=== PATIENT | female | born 1990 | race Caucasian/White ===

== ENCOUNTER 2016-07-24 05:42 | Emergency (ER) | payer MEDICAID, OTHER ==
[~2016-07-24] VITALS: Ht 165.1 cm; Wt 61.2 kg
[~2016-07-24 05:42] MED LIST: ACET50TA PO; IBUP-1114 PO
[2016-07-24 06:23] LABS: MEAN CORPUSCULAR HEMOGLOBIN 27.9 pg (27.0-33.0); MEAN CORPUSCULAR HGB CONC 33.3 g/dl (32.0-36.5); MEAN CORPUSCULAR VOLUME 83.5 fl (80.0-96.0); WHITE BLOOD COUNT 8.1 K/mm3 (4.0-10.0)
[2016-07-24 06:37] LABS: CONTROL LINE HCG INT CTR LINE PRESENT
[2016-07-24 06:54] LABS: ALBUMIN 3.9 GM/DL (3.2-5.2); ALKALINE PHOSPHATASE 64 U/L (45-117); ALT/SGPT 21 U/L (12-78); ANION GAP 7 MEQ/L (8-16); AST/SGOT 10 U/L (15-37); BILIRUBIN,DIRECT 0.1 MG/DL (0.0-0.2); BILIRUBIN,TOTAL 0.3 MG/DL (0.2-1.0); BLOOD UREA NITROGEN 11 MG/DL (7-18); CALCIUM LEVEL 8.2 MG/DL (8.5-10.1); CARBON DIOXIDE LEVEL 26 MEQ/L (21-32); CHLORIDE LEVEL 109 MEQ/L (98-107); CREATININE FOR GFR 0.73 MG/DL (0.55-1.02); GLOMERULAR FILTRATION RATE > 60.0 (>60); GLUCOSE, FASTING 112 MG/DL (70-105); POTASSIUM SERUM 4.1 MEQ/L (3.5-5.1); SODIUM LEVEL 142 MEQ/L (136-145); TOTAL PROTEIN 6.9 GM/DL (6.4-8.2)
[2016-07-24 09:49] LABS: METHADONE URINE NEGATIVE (NEGATIVE)
[2016-07-24 16:06] VITALS: BP 105/61
== END 2016-07-24 16:09 | disposition home or self-care (01) ==
LOC: M ED 06:23
DX: F32.9 Major depressive disorder, single episode, unspecified (principal); F17.210 Nicotine dependence, cigarettes, uncomplicated; Z88.0 Allergy status to penicillin; Z88.1 Allergy status to other antibiotic agents
CPT/HCPCS: 36415; 80048; 80076; 80306; 84443; 84703; 85027; 99285; G0480

== ENCOUNTER 2017-01-06 17:09 | Emergency (ER) | payer OTHER ==
[~2017-01-06] VITALS: Ht 165.1 cm; Wt 65.0 kg
[2017-01-06 17:09] VITALS: BP 126/83
== END 2017-01-06 19:10 | disposition left against medical advice (07) ==
LOC: M ED 17:09
DX: K08.89 Other specified disorders of teeth and supporting structures (principal); Z53.29 Procedure and treatment not carried out because of patient's decision for other reasons

== ENCOUNTER 2018-06-02 20:10 | Emergency (ER) | payer OTHER ==
[~2018-06-02] VITALS: Ht 165.1 cm; Wt 67.3 kg
[2018-06-02 20:10] VITALS: BP 110/52
[~2018-06-02 20:10] MED LIST changes: -ACET50TA PO; +MAPA500T2 PO
[2018-06-02] MEDS ORDERED: MULTCAP PO (23:23)
[2018-06-03] MEDS ORDERED: BACT800T5 PO (02:15)
[2018-06-03] MEDS ORDERED: PYRI1TAB5 PO (02:15)
== END 2018-06-02 20:46 | disposition left against medical advice (07) ==
LOC: M ED 20:10
DX: R10.9 Unspecified abdominal pain (principal); Z53.21 Procedure and treatment not carried out due to patient leaving prior to being seen by health care provider

== ENCOUNTER 2018-06-02 23:11 | Emergency (ER) | payer OTHER ==
[~2018-06-02] VITALS: Ht 165.1 cm; Wt 67.3 kg
[2018-06-02] MEDS ORDERED: MULTCAP PO (23:23)
[2018-06-02] MEDS ORDERED: KETOROLAC 30 MG/ML VIAL (J1885) IV ONE (23:30)
[2018-06-02] MEDS ORDERED: NS 1,000 ML IV ONE (23:30)
[2018-06-03 00:42] LABS: HEMATOCRIT 40.5 % (36.0-47.0); HEMOGLOBIN 13.9 g/dl (12.0-15.5); MEAN CORPUSCULAR HEMOGLOBIN 28.6 pg (27.0-33.0); MEAN CORPUSCULAR HGB CONC 34.3 g/dl (32.0-36.5); MEAN CORPUSCULAR VOLUME 83.3 fl (80.0-96.0); PLATELET COUNT, AUTOMATED 253 10^3/uL (150-450); RED BLOOD COUNT 4.86 10^6/uL (4.00-5.40); WHITE BLOOD COUNT 13.5 10^3/uL (4.0-10.0)
[2018-06-03 00:53] LABS: ALT/SGPT 15 U/L (12-78); BILIRUBIN,DIRECT < 0.1 MG/DL (0.0-0.2); BILIRUBIN,TOTAL 0.2 MG/DL (0.2-1.0); BLOOD UREA NITROGEN 13 MG/DL (7-18); CALCIUM LEVEL 8.8 MG/DL (8.5-10.1); CARBON DIOXIDE LEVEL 26 MEQ/L (21-32); CHLORIDE LEVEL 105 MEQ/L (98-107); CREATININE FOR GFR 0.74 MG/DL (0.55-1.30); GLOMERULAR FILTRATION RATE > 60.0 (>60); GLUCOSE, FASTING 81 MG/DL (70-100); LIPASE 101 U/L (73-393); POTASSIUM SERUM 3.8 MEQ/L (3.5-5.1); SODIUM LEVEL 140 MEQ/L (136-145); TOTAL PROTEIN 7.1 GM/DL (6.4-8.2)
[2018-06-03] MEDS ORDERED: ISOVUE-370 76% 100ML VIAL (Q9967) As Ordered ONE (01:04)
[2018-06-03 01:15] LABS: ATYPICAL LYMPH 2 % (0-5); EOSINOPHILS 3 % (0-5); LYMPHOCYTES 25 % (16-52); MONOCYTES 4 % (0-8); NEUTROPHILS 66 % (35-75)
[2018-06-03 01:16] LABS: PLATELET ESTIMATE NORMAL (NORMAL)
--- NOTE | 2018-06-03 02:02 | REPVR ---
EXAM: CT Abdomen and Pelvis With Contrast EXAM DATE/TIME: 06/02/2018 11:30 PM CLINICAL HISTORY: 28 years old, female; Abdominal pain; Right lower quadrant (rlq) TECHNIQUE: Axial computed tomography images of the abdomen and pelvis with intravenous contrast. All CT scans at this facility use at least one of these dose optimization techniques: automated exposure control; mA and/or kV adjustment per patient size (includes targeted exams where dose is matched to clinical indication); or iterative reconstruction. Coronal and sagittal reformatted images were created and reviewed. CONTRAST: 100 ml of isovue administered intravenously. COMPARISON: US PELVIC NON-OB COMPLETE 03/12/2015 11:10 AM FINDINGS: Lower thorax: There is atelectasis or scarring in the right middle lobe. No cardiomegaly or pericardial effusion is noted. ABDOMEN: Liver: The liver is unremarkable. No liver lesion is seen. The contour of the liver is smooth. No hepatomegaly is noted. Gallbladder and bile ducts: The gallbladder is contracted. No calcifications are seen in the gallbladder to suggest calculi. No gallbladder wall thickening, pericholecystic fluid, or pericholecystic inflammatory changes is identified. No dilation of the intrahepatic or extrahepatic bile ducts is noted. Pancreas: Normal. The main pancreatic duct is normal in caliber. Spleen: Unremarkable. No splenomegaly is noted. Adrenals: Normal. No mass. Kidneys and ureters: The kidneys are normal in appearance. No renal lesion is identified. No calculi are seen in the kidneys or ureters. There is no hydronephrosis or hydroureter. Stomach and bowel: There is no evidence for a bowel obstruction, diverticulosis, diverticulitis, pneumatosis intestinalis, intussusception, volvulus, or perforated viscus. The hepatic flexure, descending colon, and sigmoid colon are decompressed, limiting their optimal evaluation. Appendix: Normal. There is no evidence for appendicitis. PELVIS: Bladder: The partially distended urinary bladder is unremarkable. No stones or masses are seen in the bladder. Reproductive: The uterus is retroverted. There is an intrauterine device in satisfactory position in the endometrial canal. The ovaries are unremarkable. Incidental note is made of a 1.3 cm follicular cyst in the left ovary. ABDOMEN and PELVIS: Intraperitoneal space: Normal. No free air. No fluid collection. Bones/joints: The imaged bony structures are intact. There is no suspicious osteolytic or osteoblastic lesion. Soft tissues: Unremarkable. Vasculature: The abdominal aorta is normal in caliber and patent. The renal arteries, celiac artery, superior mesenteric artery, and inferior mesenteric artery are patent. The iliac arteries and common femoral arteries are patent. Lymph nodes: Normal. No enlarged lymph nodes. IMPRESSION: No acute findings in the abdomen or pelvis. Normal appendix. Electronically signed by: Greyson Verduzco On 06/03/2018 02:02:18 AM
[2018-06-03] MEDS ORDERED: BACTRIM 160MG/800MG DS TAB PO ONE (02:15)
[2018-06-03] MEDS ORDERED: BACT800T5 PO (02:15)
[2018-06-03] MEDS ORDERED: PYRI1TAB5 PO (02:15)
[2018-06-03 02:42] VITALS: BP 97/53
== END 2018-06-03 02:59 | disposition home or self-care (01) ==
LOC: M ED 23:11
DX: N30.90 Cystitis, unspecified without hematuria (principal); F17.210 Nicotine dependence, cigarettes, uncomplicated; Z88.0 Allergy status to penicillin; Z88.1 Allergy status to other antibiotic agents
CPT/HCPCS: 74177; 80048; 80076; 81001; 81025; 83690; 85025; 87086; 96361; 96374; 99284; J1885; Q9967

== ENCOUNTER → 2018-06-12 | Outpatient (REF) | payer OTHER ==
[~2018-06-12] MED LIST changes: +BACT800T5 PO; +MULTCAP PO; +PYRI1TAB5 PO
[2018-06-12 12:39] LABS: APPEARANCE, URINE HAZY (CLEAR); BACTERIA, URINE AUTO NEGATIVE (NEGATIVE); BILIRUBIN, URINE AUTO NEGATIVE (NEGATIVE); BLOOD, URINE BLOOD NEGATIVE (NEGATIVE); COLOR, URINE YELLOW (YELLOW); GLUCOSE, URINE (UA) AUTO NEGATIVE (NEGATIVE); KETONE, URINE AUTO NEGATIVE (NEGATIVE); LEUKOCYTE ESTERASE, URINE AUTO NEGATIVE (NEGATIVE); MUCUS, URINE SMALL (NEGATIVE); NITRITE, URINE AUTO NEGATIVE (NEGATIVE); PROTEIN, URINE AUTO NEGATIVE (NEGATIVE); RBC, URINE AUTO 0 /HPF (0-3); SPECIFIC GRAVITY URINE AUTO 1.027 (1.002-1.035); SQUAMOUS EPITHELIAL CELL UR AU 3 /HPF (0-6); WBC, URINE AUTO 1 /HPF (0-3)
== END ==
LOC: M LAB REF 12:22
PROVIDERS: ATTEND Physician Assistant Medical
DX: N39.0 Urinary tract infection, site not specified (principal)

== ENCOUNTER 2019-09-08 19:40 | Inpatient (IN) | payer OTHER ==
[~2019-09-08] VITALS: Ht 165.1 cm; Wt 52.2 kg
[2019-09-08] MEDS ORDERED: DICYCLOMINE 10 MG CAP PO ONE (20:15)
[2019-09-08] MEDS ORDERED: ONDANSETRON 4MG/2ML VIAL IV ONE (20:15)
[2019-09-08] MEDS ORDERED: KETOROLAC 30 MG/ML 1ML VIAL IV ONE (20:15)
[2019-09-08] MEDS ORDERED: NS 1,000 ML IV ONE (20:15)
[2019-09-08 20:53] LABS: BASO # 0.1 10^3/uL (0.0-0.2); BASO % 0.8 % (0.0-1.0); EOS # 0.2 10^3/uL (0.0-0.5); EOS % 1.9 % (0.0-3.0); HEMATOCRIT 46.6 % (36.0-47.0); HEMOGLOBIN 15.3 g/dl (12.0-15.5); LYMPH # 3.1 10^3/uL (1.5-5.0); LYMPH % 30.6 % (24.0-44.0); MEAN CORPUSCULAR HEMOGLOBIN 28.3 pg (27.0-33.0); MEAN CORPUSCULAR HGB CONC 32.8 g/dl (32.0-36.5); MEAN CORPUSCULAR VOLUME 86.3 fl (80.0-96.0); MONO # 0.6 10^3/uL (0.0-0.8); MONO % 5.9 % (0.0-5.0); NEUTROPHILS # 6.1 10^3/uL (1.5-8.5); NEUTROPHILS % 60.3 % (36.0-66.0); PLATELET COUNT, AUTOMATED 358 10^3/uL (150-450); WHITE BLOOD COUNT 10.2 10^3/uL (4.0-10.0)
--- NOTE | 2019-09-08 21:16 | REPVR ---
PROCEDURE INFORMATION: Exam: US Abdomen Limited, Right Upper Quadrant Exam date and time: 09/08/2019 8:58 PM Age: 29 years old Clinical indication: Abdominal pain; Additional info: Epigastric pain TECHNIQUE: Imaging protocol: Real-time ultrasound of the abdomen with image documentation. Examination was focused on the right upper quadrant. COMPARISON: No relevant prior studies available. FINDINGS: Liver: Unremarkable. Gallbladder: Contracted, which limits evaluation for wall thickening. No gallstones. No pericholecystic fluid. Common bile duct: No stones. No ductal dilatation. Pancreas: Unremarkable as visualized. Right kidney: No mass. No definite stones. No hydronephrosis. Lymph nodes: 1.1 x 0.9 x 1.4 cm ovoid, hypoechoic lesion in the wood hepatis, likely a lymph node. IMPRESSION: 1. Contracted gallbladder, which limits evaluation. If there is persistent clinical concern for acute gallbladder pathology, HIDA scan would provide a more sensitive evaluation. 2. 1.1 x 0.9 x 1.4 cm ovoid, hypoechoic lesion in the wood hepatis, likely a lymph node. Electronically signed by: Neftali Baker On 09/08/2019 21:16:32 PM
[2019-09-08 21:32] LABS: ALBUMIN 3.5 GM/DL (3.2-5.2); ALT/SGPT 923 U/L (12-78); BILIRUBIN,DIRECT 1.1 MG/DL (0.0-0.2); BILIRUBIN,TOTAL 1.5 MG/DL (0.2-1.0); FREE THYROXINE INDEX 3.4 % (1.3-4.8); LIPASE 137 U/L (73-393); T UPTAKE 24 % (30-39); THYROXINE (T4) 14.1 UG/DL (4.5-12.0); TOTAL PROTEIN 7.5 GM/DL (6.4-8.2)
[2019-09-08 21:37] LABS: HCG, SERUM QUALITATIVE NEGATIVE (NEGATIVE)
[2019-09-08] MEDS ORDERED: GI COCKTAIL 50ML BTL(HYOSCYAMINE/MAALOX/LIDOCAINE VISCOUS)(1:3:1) PO ONE (22:00)
[2019-09-08] MEDS ORDERED: PANTOPRAZOLE 40MG VIAL (C9113 PER 1) IV ONE (23:15)
[2019-09-08 23:18] LABS: LDH LACTATE DEHYDROGENASE 487 U/L (84-246)
[2019-09-09] MEDS ORDERED: ONDANSETRON 4MG/2ML VIAL IV PRN
--- NOTE | 2019-09-09 00:11 | HPEPDOC ---
General Date of Admission Sep 08, 2019 at 23:43 Date of Service: Sep 08, 2019 Chief Complaint The patient is a 29-year-old female Who presented to the hospital with complaints of epigastric pain History of Present Illness Patient is a 29-year-old female with a PMHx of GERD who presented to the hospital with complaints of upper abdominal pain. Patient reported that her pain began a few days ago. Currently, is a 0/10, but had started at 10 /10, constant in nature. Patient has reported that she does use IV drugs. The most recent use was 3 days prior with IV synthetic moley. Patient has denied any prior history of abdominal pain. She denies any associated nausea, vomiting, constipation, diarrhea, or urinary discomfort. She denies any fevers or chills. Reports that she does not experience any chest pain, shortness of breath or cough. Patient reports her appetite has been poor and reports a 20 pound weight loss over the last 6 months. Home Medications No Active Prescriptions or Reported Meds Allergies Coded Allergies: Cephalosporins (Unverified Allergy, Unknown, 09/08/19) Penicillins (Unverified Allergy, Unknown, 09/08/19) Past Medical History Medical History GERD Surgical History Patient denies any prior surgical history Family History - Patient is unsure of any medical history of her parents Social History - Denies the use of alcohol. Patient reports that she is a smoker. 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 Review of Systems Other systems 10 point review of systems complete, all negative otherwise stated in HPI Vital Signs - Vitals: BP 119/71, HR 84, RR 18, Sat 100%RA, Temp 98.2F - General: Lying in bed, appears fatigued, AAOx3 - HEENT: NC, AT, PERRLA, EOMI - CVS: RRR, +S1S2 - Lungs: Fair air entry bilaterally, No appreciable wheezing / rales / rhonchi - Abdomen: Soft, Non-distended, + Epigastric tenderness - Extremities: No lower extremity edema, No calf tenderness - Neuro: No focal motor or sensory deficit - Skin: No visible rashes Laboratory Data Labs 24H Laboratory Tests 2 09/08/19 20:43: Immature Granulocyte % (Auto) 0.5, Neutrophils (%) (Auto) 60.3, Lymphocytes (%) (Auto) 30.6, Monocytes (%) (Auto) 5.9H, Eosinophils (%) (Auto) 1.9, Basophils (%) (Auto) 0.8, Neutrophils # (Auto) 6.1, Lymphocytes # (Auto) 3.1, Monocytes # (Auto) 0.6, Eosinophils # (Auto) 0.2, Basophils # (Auto) 0.1, Nucleated Red Blood Cells % (auto) 0.0, Total Bilirubin 1.5H, Direct Bilirubin 1.1H, Aspartate Amino Transf (AST/SGOT) 1275H, Alanine Aminotransferase (ALT/SGPT) 923H, Alkaline Phosphatase 315H, Lactate Dehydrogenase 487H, Total Protein 7.5, Albumi n 3.5, Albumin/Globulin Ratio 0.88L, Lipase 137, Thyroid Stimulating Hormone (TSH) 1.370, Free Thyroxine Index 3.4, Thyroxine (T4) 14.1H, Triiodothyronine (T3) Uptake 24L, Human Chorionic Gonadotropin, Qual NEGATIVE 09/08/19 20:54: POC Glucose (Misc Panel) 145H, POC Sodium (Misc Panel) 140, POC Potassium (Misc Panel) 4.0, POC Chloride (Misc Panel) 103, POC Total CO2 (Misc Panel) 26.0, POC Blood Urea Nitrogen (Misc Panel 9, POC Ionized Calcium (Misc Panel) 4.7, POC Creatinine (Misc Panel) 0.5L, POC Hematocrit (Misc Panel) 48.0 09/08/19 23:19: Ethyl Alcohol Level < 0.003 09/08/19 23:48: Urine Color CHANTELL, Urine Appearance CLOUDYH, Urine pH 5.0, Urine Specific [place] 1.036, Urine Protein 1+H, Urine Glucose (UA) NEGATIVE, Urine Ketones NEGATIVE, Urine Blood NEGATIVE, Urine Nitrite NEGATIVE, Urine Bilirubin 2+H, Urine Urobilinogen 4.0H, Urine Leukocyte Esterase NEGATIVE, Urine WBC (Auto) 0, Urine RBC (Auto) 6H, Urine Hyaline Casts (Auto) 0, Urine Bacteria (Auto) NEGATIVE, Urine Squamous Epithelial Cells 11, Urine Calcium Oxalate Cryst (Auto) SMALL, Urine Mucus (Auto) LARGE, Urine Sperm (Auto) CBC/BMP Laboratory Tests 09/08/19 20:43 Plan / VTE VTE Prophylaxis Ordered?: Yes Plan Plan Epigastric pain / RUQ pain - possibly 2/2 acute hepatitis - likely 2/2 infectious source, possibly 2/2 drug use - Patient presented to the hospital with complaints of abdominal pain - Physical reveals epigastric and right upper quadrant tenderness - Remains hemodynamically stable and afebrile - Mild leukocytosis; profound elevation of AST/ALT at ~2:1 ratio - Lipase within normal limits - Hepatitis panel is pending - US abdomen 09/07: 1. Contracted gallbladder, which limits evaluation. If there is persistent clinical concern for acute gallbladder pathology, HIDA scan would provide a more sensitive evaluation. 2. 1.1 x 0.9 x 1.4 cm ovoid, hypoechoic les ion in the wood hepatis, likely a lymph node. - Will consider HIDA scan if hepatitis panel is negative - Will continue to trend AST / ALT - Will discuss with gastroenterology; will hold off on imaging will follow lab work for now Gastrointestinal prophylaxis - Will start Protonix DVT prophylaxis - Will start Heparin INDIGO DONNELLY MD Sep 09, 2019 00:11
[2019-09-09 00:36] LABS: AMPHETAMINES LEVEL URINE POSITIVE (NEGATIVE); BARBITURATES URINE NEGATIVE (NEGATIVE); BENZODIAZEPINES URINE NEGATIVE (NEGATIVE); CANNABINOIDS URINE POSITIVE (NEGATIVE); COCAINE METABOLITE URINE NEGATIVE (NEGATIVE); METHADONE URINE NEGATIVE (NEGATIVE); OPIATES URINE NEGATIVE (NEGATIVE); PHENCYCLIDINE URINE NEGATIVE (NEGATIVE)
[2019-09-09 01:23] VITALS: BP 111/56
[2019-09-09] MEDS: NS 1,000 ML IV SCH ×4 (01:56→20:40)
[2019-09-09 06:00] VITALS: BP 108/59
[2019-09-09] MEDS: HEPARIN SOD (PORCINE) 5000UNITS/ML VIAL (J1644 PER 1000UNITS) SC SCH ×3 (06:00→21:31)
[2019-09-09 07:07] LABS: BASO # 0.1 10^3/uL (0.0-0.2); BASO % 0.9 % (0.0-1.0); EOS # 0.2 10^3/uL (0.0-0.5); EOS % 2.6 % (0.0-3.0); HEMATOCRIT 44.4 % (36.0-47.0); HEMOGLOBIN 14.2 g/dl (12.0-15.5); LYMPH # 3.3 10^3/uL (1.5-5.0); LYMPH % 36.9 % (24.0-44.0); MEAN CORPUSCULAR HEMOGLOBIN 28.1 pg (27.0-33.0); MEAN CORPUSCULAR VOLUME 87.9 fl (80.0-96.0); MONO # 0.7 10^3/uL (0.0-0.8); MONO % 8.2 % (0.0-5.0); NEUTROPHILS # 4.6 10^3/uL (1.5-8.5); NEUTROPHILS % 50.8 % (36.0-66.0); PLATELET COUNT, AUTOMATED 328 10^3/uL (150-450); RED BLOOD COUNT 5.05 10^6/uL (4.00-5.40)
[2019-09-09 07:26] LABS: H PYLORI QUALITATIVE IgG NEGATIVE (NEGATIVE)
[2019-09-09 07:47] LABS: ALBUMIN 2.9 GM/DL (3.2-5.2); ALT/SGPT 820 U/L (12-78); BILIRUBIN,TOTAL 1.5 MG/DL (0.2-1.0); BLOOD UREA NITROGEN 9 MG/DL (7-18); CALCIUM LEVEL 8.1 MG/DL (8.5-10.1); CARBON DIOXIDE LEVEL 25 MEQ/L (21-32); CHLORIDE LEVEL 110 MEQ/L (98-107); CREATININE FOR GFR 0.67 MG/DL (0.55-1.30); GLOMERULAR FILTRATION RATE > 60.0 (>60); GLUCOSE, FASTING 82 MG/DL (70-100); MAGNESIUM LEVEL 2.1 MG/DL (1.8-2.4); POTASSIUM SERUM 4.6 MEQ/L (3.5-5.1); SODIUM LEVEL 140 MEQ/L (136-145); TOTAL PROTEIN 6.2 GM/DL (6.4-8.2)
[2019-09-09] MEDS: FOLIC ACID 1 MG TAB PO SCH (09:38)
[2019-09-09] MEDS: PANTOPRAZOLE 40MG VIAL (C9113 PER 1) IV SCH ×2 (09:38→20:40)
[2019-09-09] MEDS: THIAMINE 100 MG TAB PO SCH (09:38)
[2019-09-09] MEDS: MULTIVITAMINS/MINERALS THERAP 1 TAB PO SCH (09:38)
[2019-09-09 14:00] VITALS: BP 93/57
--- NOTE | 2019-09-09 15:50 | IPNPDOC ---
Text Note Date of Service The patient was seen on 09/09/19. NOTE Subjective: -Sleeping peacefully, awakes on touch, very tired, answering questions appropriately, not very talkative -By midmorning was asking for her diet to be advanced from clears Objective: - Vitals: see below - General: Lying in bed, appears tired, AAOx3 - HEENT: NC, AT, PERRLA, EOMI - CVS: RRR, +S1S2 - Lungs: CTAB, no appreciable wheezing, rales or rhonchi - Abdomen: Hypoactive bowel sounds, continues to have RUQ and epigastric TTP, soft, nondistended - Extremities: No lower extremity edema, No calf tenderness, WWP - Neuro: No focal motor or sensory deficit, moving all extremities spontaneously, has 5/5 strength in all 4 limbs, no asterixis - Skin: No visible rashes Laboratory Data WBC 9 hgb 14.2 platelets 328 na 140 k 4.6 Cr 0.67 ast 1120 alt 820 alk phos 231 29 yo W with PSUD who presented with epigastric pain of 2 days and found to have hepatocellular injury c/f acute drug induced hepatitis most likely alcohol induced vs. other drugs, less likely infectious though workup is pending, with improving abdominal pain. Epigastric pain / RUQ pain - acute hepatitis likely 2/2 alcohol vs. other drug induced vs. unlikely infectious source - Mild leukocytosis; profound elevation of AST/ALT at ~2:1 ratio - Lipase within normal limits - Hepatitis panel is pending - US abdomen 09/07: 1. Contracted gallbladder, which limits evaluation. If there is persistent clinical concern for acute gallbladder pathology, HIDA scan would provide a more sensitive evaluation. 2. 1.1 x 0.9 x 1.4 cm ovoid, hypoechoic lesion in the wood hepatis, likely a lymph node. - Will continue to trend AST / ALT - GI made aware, medical management with supportive care -Advance diet as tolerated -continue fluids at 100cc/hr -given history of alcohol use, will continue thiamine and folate GERD - continue protonix DVT prophylaxis - HSQ VS,Fishbone, I+O VS, Fishbone, I+O Laboratory Tests 09/08/19 20:43 09/09/19 05:55 Vital Signs Date Time Temp Pulse Resp B/P (MAP) Pulse Ox O2 Delivery O2 Flow Rate FiO2 09/09/19 14:00 97.8 64 19 93/57 (69) 100 Room Air I&O- Last 24 Hours up to 6 AM 09/09/19 06:00 Intake Total 1000 ml Output Total 200 ml Balance 800 ml LUCIAN HARMAN MD Sep 09, 2019 15:50
--- NOTE | 2019-09-09 20:37 | ECHO ---
DATE OF PROCEDURE: 09/09/2019 DATE OF : 1990 AGE: 29 REFERRING PROVIDER: Dr. Ana Torres PATIENT LOCATION: Room 4205 REASON FOR STUDY: Heart murmur. 2D MEASUREMENTS: IVS: 0.9 cm LV: 3.7 cm LVPW: 0.9 cm LA: 2.6 cm Aorta: 2.7 cm RV: 2.7 cm IVC: 1.5 cm DOPPLER MEASUREMENTS: Peak velocity across the aortic valve: 1.3 meters per second Peak velocity across the LVOT: 1.0 meters per second Mitral E: 0.93, Mitral A: 0.31 with a ratio of 3.0 Maximum tricuspid valve velocity: 1.9 meters per second 2D COMMENTS: Normal left ventricular size, wall thickness, and normal global left ventricular systolic function. The estimated left ventricular systolic ejection fraction is 65-70%. 2. Normal left atrium. Normal right atrium and right ventricle. 3. The atrial septum appeared to be normal without evidence of defect or shunt. 4. Normal aortic root. 5. No pericardial effusion seen. 6. Minimally calcified aortic valve noted in limited views, leaflet excursion appeared to be normal. Normal mitral valve, tricuspid valve, and pulmonic valve. The proximal pulmonary artery branches were not well visualized. 7. The inferior vena cava was normal in size, central venous pressure is most likely normal. DOPPLER: It detects trace aortic regurgitation, trace tricuspid regurgitation, and mild tricuspid regurgitation. The calculated pulmonary artery systolic pressure was normal. Assessment of the left ventricular diastolic function was normal. IMPRESSION: 1. Normal global left ventricular systolic and diastolic function. 2. Aortic valve sclerosis with trace aortic regurgitation. 3. Trace tricuspid regurgitation with a normal calculated pulmonary artery systolic pressure. 4. Trace pulmonic regurgitation. 5. No vegetation seen and if endocarditis is a concern, to consider a transesophageal echocardiogram.
[2019-09-09 22:00] VITALS: BP 102/57
[2019-09-10] MEDS ORDERED: ACETAMINOPHEN TAB 650MG DOSE (2X325MG) PO PRN (01:00)
[2019-09-10] MEDS ORDERED: LIDOCAINE 5% (LIDODERM) PATCH TD ONE (03:45)
[2019-09-10] MEDS: HEPARIN SOD (PORCINE) 5000UNITS/ML VIAL (J1644 PER 1000UNITS) SC SCH (05:57)
[2019-09-10 06:00] VITALS: BP 115/68
[2019-09-10 06:55] LABS: BASO # 0.1 10^3/uL (0.0-0.2); BASO % 0.7 % (0.0-1.0); EOS # 0.2 10^3/uL (0.0-0.5); EOS % 1.9 % (0.0-3.0); HEMATOCRIT 37.4 % (36.0-47.0); HEMOGLOBIN 12.3 g/dl (12.0-15.5); LYMPH # 2.9 10^3/uL (1.5-5.0); LYMPH % 35.2 % (24.0-44.0); MEAN CORPUSCULAR HEMOGLOBIN 28.5 pg (27.0-33.0); MEAN CORPUSCULAR HGB CONC 32.9 g/dl (32.0-36.5); MEAN CORPUSCULAR VOLUME 86.6 fl (80.0-96.0); MONO # 0.6 10^3/uL (0.0-0.8); MONO % 7.6 % (0.0-5.0); NEUTROPHILS # 4.5 10^3/uL (1.5-8.5); NEUTROPHILS % 54.2 % (36.0-66.0); PLATELET COUNT, AUTOMATED 279 10^3/uL (150-450); RED BLOOD COUNT 4.32 10^6/uL (4.00-5.40); WHITE BLOOD COUNT 8.3 10^3/uL (4.0-10.0)
[2019-09-10 07:33] LABS: ALBUMIN 2.7 GM/DL (3.2-5.2); ALT/SGPT 810 U/L (12-78); BILIRUBIN,TOTAL 2.5 MG/DL (0.2-1.0); BLOOD UREA NITROGEN 5 MG/DL (7-18); CALCIUM LEVEL 7.7 MG/DL (8.5-10.1); CARBON DIOXIDE LEVEL 25 MEQ/L (21-32); CHLORIDE LEVEL 107 MEQ/L (98-107); CREATININE FOR GFR 0.51 MG/DL (0.55-1.30); GLOMERULAR FILTRATION RATE > 60.0 (>60); GLUCOSE, FASTING 83 MG/DL (70-100); POTASSIUM SERUM 3.8 MEQ/L (3.5-5.1); SODIUM LEVEL 138 MEQ/L (136-145); TOTAL PROTEIN 5.5 GM/DL (6.4-8.2)
[2019-09-10] MEDS: PANTOPRAZOLE 40MG VIAL (C9113 PER 1) IV SCH (09:39)
[2019-09-10] MEDS: THIAMINE 100 MG TAB PO SCH (09:39)
[2019-09-10] MEDS: MULTIVITAMINS/MINERALS THERAP 1 TAB PO SCH (09:39)
[2019-09-10] MEDS: FOLIC ACID 1 MG TAB PO SCH (09:39)
[2019-09-10 11:45] LABS: HEPATITIS A ANTIBODY IGM NEGATIVE (NEGATIVE); HEPATITIS B CORE ANTIBODY IGM NEGATIVE (NEGATIVE); HEPATITIS B SURFACE ANTIGEN NEGATIVE (NEGATIVE)
[2019-09-10 11:49] LABS: HEPATITIS C VIRUS ABY INDEX 5.6 INDEX (<0.8)
--- NOTE | 2019-09-10 13:27 | DS.PDOC ---
Discharge Summary General Date of Admission Sep 08, 2019 at 23:43 Date of Discharge 09/10/2019 Attending Physician: LUCIAN HARMAN MD Discharge Summary PROCEDURES PERFORMED DURING STAY: None ADMITTING DIAGNOSES: 1. Abdominal pain DISCHARGE DIAGNOSES: 1. Acute hepatitis C 2. PSUD COMPLICATIONS/CHIEF COMPLAINT: Hepatitis. HISTORY OF PRESENT ILLNESS: 29-year-old W with a PMHx of GERD and IV PSUD who presented to the hospital with complaints of upper abdominal pain of a few day duration reporting last use of IV Jade 3 days prior to presentation. She also endorsed poor PO and 20 pound weight loss over a 6 month period. HOSPITAL COURSE: On evaluation, she was found to have acute transaminitis in 2:1 distribution to low 1000s, with a hepatocellular injury pattern with mild alk phos elevation and slight hyperbilirubinemia. Her abdominal pain improve with pain medication and bowel rest and she was reintroduced to her a diet that she tolerated until she was back on a regular diet without complaints. She was ultimately found to have acute hepatitis C and was evaluated by Dr. Pepper, and will follow with her shortly in ID clinic. Of note, given the weight loss and HCV infection, will add on HIV testing to her AM labs that will be reviewed in clinic when she sees Dr. Pepper. At this time, patient is absolutely anxious to leave the hospital and will be followed in ID clinic. DISCHARGE MEDICATIONS: Please see below. ALLERGIES: Please see below. PHYSICAL EXAMINATION ON DISCHARGE: VITAL SIGNS: Please see below. - General: Pacing the room, in street clothes, demanding to be discharged. NAD - HEENT: NC, AT, PERRLA, EOMI - CVS: RRR, +S1S2 - Lungs: CTAB, no appreciable wheezing, rales or rhonchi - Abdomen: Normoactive bowel sounds, NTND, soft - Extremities: No lower extremity edema, No calf tenderness, WWP - Neuro: No focal motor or sensory deficit, moving all extremities spontaneously, has 5/5 strength in all 4 limbs, normal gait - Skin: No visible rashes LABORATORY DATA: Please see below. IMAGING: Gallbladder US: 1. Contracted gallbladder, which limits evaluation. If there is persistent clinical concern for acute gallbladder pathology, HIDA scan would provide a more sensitive evaluation. 2. 1.1 x 0.9 x 1.4 cm ovoid, hypoechoic lesion in the wood hepatis, likely a lymph node. PROGNOSIS: Good if she refrains for IVDU and follows up with ID ACTIVITY: As tolerated DIET: Regular DISCHARGE PLAN: Home with ID follow up DISPOSITION: Home DISCHARGE INSTRUCTIONS: 1. Please follow up with Evgeny ITEMS TO FOLLOWUP ON ON OUTPATIENT: 1. Acute HCV infection 2. HIV testing results DISCHARGE CONDITION: Stable TIME SPENT ON DISCHARGE: 32 minutes. Vital Signs/I&Os Vital Signs Date Time Temp Pulse Resp B/P (MAP) Pulse Ox O2 Delivery O2 Flow Rate FiO2 09/10/19 06:00 98.9 77 16 115/68 (84) 100 09/09/19 14:00 Room Air I&O- Last 24 Hours up to 6 AM 09/10/19 05:59 Intake Total 2890 ml Output Total 1250 ml Balance 1640 ml Laboratory Data Labs 24H Laboratory Tests 2 09/10/19 05:48: Immature Granulocyte % (Auto) 0.4, Neutrophils (%) (Auto) 54.2, Lymphocytes (%) (Auto) 35.2, Monocytes (%) (Auto) 7.6H, Eosinophils (%) (Auto) 1.9, Basophils (%) (Auto) 0.7, Neutrophils # (Auto) 4.5, Lymphocytes # (Auto) 2.9, Monocytes # (Auto) 0.6, Eosinophils # (Auto) 0.2, Basophils # (Auto) 0.1, Nucleated Red Blood Cells % (auto) 0.0, Anion Gap 6L, Glomerular Filtration Rate > 60.0, Calc ium Level 7.7L, Magnesium Level 2.0, Total Bilirubin 2.5#H, Aspartate Amino Transf (AST/SGOT) 1005H, Alanine Aminotransferase (ALT/SGPT) 810H, Alkaline Phosphatase 203H, Total Protein 5.5L, Albumin 2.7L, Albumin/Globulin Ratio 0.96L CBC/BMP Laboratory Tests 09/10/19 05:48 Microbiology Microbiology 09/09/19 Blood Culture - Preliminary, Resulted No growth after 24 hours . All specim... 09/09/19 Blood Culture - Preliminary, Resulted No growth after 24 hours . All specim... Discharge Medications No Active Prescriptions or Reported Meds Allergies Coded Allergies: Cephalosporins (Unverified Allergy, Unknown, 09/08/19) Penicillins (Unverified Allergy, Unknown, 09/08/19) LUCIAN HARMAN MD Sep 10, 2019 13:27
--- NOTE | 2019-09-10 13:30 | IPNPDOC ---
Text Note Date of Service The patient was seen on 09/10/19. NOTE Subjective: -Awake this AM -No complaints or events overnight, tolerating regular diet Objective: - Vitals: see below - General: Lying in bed, appears tired, AAOx3 - HEENT: NC, AT, PERRLA, EOMI, pale - CVS: RRR, +S1S2 - Lungs: CTAB, no appreciable wheezing, rales or rhonchi - Abdomen: Hypoactive bowel sounds, continues to have RUQ and epigastric TTP, soft, nondistended - Extremities: No lower extremity edema, No calf tenderness, WWP - Neuro: No focal motor or sensory deficit, moving all extremities spontaneously, has 5/5 strength in all 4 limbs, no asterixis - Skin: No visible rashes Laboratory Data WBC 8.3 hgb 12.3 platelets 279 na 138 k 3.9 Cr 0.5 ast 1005 alt 810 alk phos 203 Tbili 2.5 hep serologies - HepC +, viral load pending 29 yo W with PSUD who presented with epigastric pain of 2 days and found to have hepatocellular injury c/f acute drug induced hepatitis most likely alcohol induced vs. other drugs, less likely infectious though workup is pending, with improving abdominal pain. Epigastric pain / RUQ pain - acute hepatitis likely 2/2 alcohol vs. other drug induced vs. unlikely infectious source - Mild leukocytosis; profound elevation of AST/ALT at ~2:1 ratio. leukocytosis resolved - Lipase within normal limits - Hepatitis panel is pending - US abdomen 09/07: 1. Contracted gallbladder, which limits evaluation. If there is persistent clinical concern for acute gallbladder pathology, HIDA scan would provide a more sensitive evaluation. 2. 1.1 x 0.9 x 1.4 cm ovoid, hypoechoic lesion in the wood hepatis, likely a lymph node. -ID consulted for acute HCV infection, saw her, will follow up in clinic -Now tolerating regular diet Dispo: Discharging home today VS,Fishbone, I+O VS, Fishbone, I+O Laboratory Tests 09/10/19 05:48 Vital Signs Date Time Temp Pulse Resp B/P (MAP) Pulse Ox O2 Delivery O2 Flow Rate FiO2 09/10/19 06:00 98.9 77 16 115/68 (84) 100 09/09/19 14:00 Room Air I&O- Last 24 Hours up to 6 AM 09/10/19 05:59 Intake Total 2890 ml Output Total 1250 ml Balance 1640 ml LUCIAN HARMAN MD Sep 10, 2019 09:23
[2019-09-10 14:38] LABS: HEPATITIS B SURFACE ANTIBODY NEGATIVE (POSITIVE); HIV 1&2 SCREEN CENTAUR NEGATIVE (NEGATIVE)
[2019-09-10] MEDS ORDERED: **NOTE PATIENT COMMENT** MISC XX ONE (15:45)
--- NOTE | 2019-09-11 11:12 | CR ---
DATE OF CONSULTATION: 09/10/2019 Ayden Morgan was seen today for infectious disease consultation due to acute hepatitis C infection. HISTORY OF PRESENT ILLNESS: She presented to the hospital complaining of upper abdominal pain mostly in the right upper quadrant about 3-4 days prior. She stated the pain was 10/10 and constant while she was at home. When she presented to the emergency room, she did receive IV Toradol with complete relief of her pain. She denies any history of pain like this in the past. She denies any nausea, vomiting, diarrhea during this time. She also denied any fevers, chills, or night sweats. She did report a history of 20-pound weight loss over the prior 6 months. She states her appetite has been normal and is not sure why she has lost weight. She does have a history of IV drug use with Jade. She states she had not been using over the 3 days prior to the hospital admission. REVIEW OF SYSTEMS: 10-point review of systems, other than what is noted above was negative. Initial laboratory evaluation in the emergency room revealed transaminitis with AST 1275, ALT 923, alkaline phosphatase 315. She was found to have an elevated hepatitis C antibody index of 5.6. She also had a right upper quadrant ultrasound as reported below. PAST MEDICAL HISTORY: None. PAST SURGICAL HISTORY: None. HOME MEDICATIONS: None. ALLERGIES: PENICILLIN, CEPHALOSPORIN FAMILY MEDICAL HISTORY: Patient reports mother had hepatitis C but states her mother did not know where she got it from. Patient is not sure of any family medical history in her father. SOCIAL HISTORY: Patient denies alcohol use. She reports IV Jade use 4 days prior to admission. She also reports regular marijuana use. She currently states she lives alone and previously worked as a computer technology teacher. PHYSICAL EXAMINATION: VITAL SIGNS: Temperature 98.9 degrees Fahrenheit, heart rate 77, respiratory rate 16, blood pressure 115/68, oxygen saturation 100% on room air. GENERAL: Standing in room, dressed in pajama pants and jacket, appears slightly agitated but alert. HEENT: Normocephalic, atraumatic. Sclerae anicteric. Moist mucous membranes. LUNGS: Clear to auscultation bilaterally. No wheezing, rhonchi or rales noted. HEART: Regular rate and rhythm. Normal S1 and S2. ABDOMEN: Soft, nondistended. Mild right upper quadrant and epigastric tenderness to palpation. Bowel sounds present, no hepatosplenomegaly noted. EXTREMITIES: No edema, clubbing, calf tenderness. Pulses 2+ in the radial and dorsalis pedis arteries. NEUROLOGIC: No focal deficits appreciated. SKIN: No rash noted. LABORATORY DATA: White blood cell count 8.3, hemoglobin 12.3, hematocrit 37.4, platelet count 279. Sodium 138, potassium 3.8, chloride 107, bicarbonate 25, BUN 5, creatinine 0.51, glucose 83, calcium 7.7, magnesium 2.0. Bilirubin 2.5, AST 1005, ALT 810, alkaline phosphatase 203, lactate dehydrogenase 487, total protein 5.5, albumin 2.7, procalcitonin 0.36. Hepatitis A IgM negative, hepatitis B surface antigen negative, hepatitis B core IgM negative, hepatitis C antibody index 5.6. Urine drug screen positive for amphetamines and cannabinoids. Blood cultures times two drawn 09/09/2019 negative at 24 hours. IMAGING: Gallbladder ultrasound was limited due to a contracted gallbladder. HIDA scan was suggested for further evaluation if indicated. A 1.1 x 0.9 x 1.4 cm ovid hypoechoic lesion in the wood hepatis was noted as likely a lymph node. Echocardiogram showed a normal left ventricle with systolic ejection fraction 65-70%, normal left atrium, right atrium and right ventricle. Cardiac valve sclerosis with trace aortic regurgitation. Trace tricuspid regurgitation with a normal calculated pulmonary artery systolic pressure. Trace pulmonic regurgitation. No vegetation seen. IMPRESSION: Acute hepatitis C infection likely secondary to IV drug use: Patient states she has never been diagnosed with hepatitis C in the past. She is not sure if she has been vaccinated for hepatitis A or B. PLAN We have ordered a hepatitis A IgG and hepatitis B surface antibody as well as HIV screen. We have also ordered hepatitis C viral load. She will followup in the outpatient office for treatment of her hepatitis C and hepatitis A and B vaccination if indicated. She has an appointment scheduled for 09/21/2019 at 10:00 a.m. She was using at least 3 days prior to hospital admission and states she plans to stay sober. She will need to remain sober , since she had acute hepatitis C will need to see if she has spontaneous remission chance up to 50 %prior to starting her hepatitis C treatment. We will hold off on FibroSURE at this time considering her acute hepatitis infection with elevated transaminases. GERALDO
== END 2019-09-10 13:39 | disposition home or self-care (01) ==
LOC: M ED 19:40 → M ED INP 23:43 → ENRESERV 09-09 00:52 → M MSPAV 09-09 01:23
PROVIDERS: ADMIT Internal Medicine; ATTEND Internal Medicine
DX: B17.10 Acute hepatitis C without hepatic coma (principal); F15.10 Other stimulant abuse, uncomplicated; R10.13 Epigastric pain; F17.200 Nicotine dependence, unspecified, uncomplicated; R10.11 Right upper quadrant pain; Z88.0 Allergy status to penicillin; Z88.1 Allergy status to other antibiotic agents

== ENCOUNTER 2019-11-30 00:58 | Emergency (ER) | payer OTHER ==
[~2019-11-30] VITALS: Ht 165.1 cm; Wt 58.2 kg
[2019-11-30 01:47] LABS: BASO # 0.1 10^3/uL (0.0-0.2); BASO % 0.4 % (0.0-1.0); EOS # 0.2 10^3/uL (0.0-0.5); EOS % 1.1 % (0.0-3.0); HEMATOCRIT 43.4 % (36.0-47.0); HEMOGLOBIN 14.2 g/dl (12.0-15.5); LYMPH # 2.9 10^3/uL (1.5-5.0); LYMPH % 13.6 % (24.0-44.0); MEAN CORPUSCULAR HEMOGLOBIN 28.1 pg (27.0-33.0); MEAN CORPUSCULAR HGB CONC 32.7 g/dl (32.0-36.5); MEAN CORPUSCULAR VOLUME 85.9 fl (80.0-96.0); MONO # 1.2 10^3/uL (0.0-0.8); MONO % 5.5 % (0.0-5.0); NEUTROPHILS # 16.7 10^3/uL (1.5-8.5); NEUTROPHILS % 78.9 % (36.0-66.0); PLATELET COUNT, AUTOMATED 321 10^3/uL (150-450); RED BLOOD COUNT 5.05 10^6/uL (4.00-5.40); WHITE BLOOD COUNT 21.1 10^3/uL (4.0-10.0)
[2019-11-30 02:18] LABS: ALBUMIN 3.7 GM/DL (3.2-5.2); BILIRUBIN,DIRECT 0.4 MG/DL (0.0-0.2); BILIRUBIN,TOTAL 0.8 MG/DL (0.2-1.0)
[2019-11-30] MEDS ORDERED: NS 1,000 ML IV ONE (02:30)
[2019-11-30] MEDS ORDERED: KETOROLAC 30 MG/ML 1ML VIAL IV ONE (02:30)
[2019-11-30] MEDS ORDERED: ISOVUE-370 76% 100ML VIAL As Ordered ONE (02:39)
[2019-11-30 02:45] VITALS: BP 116/59
--- NOTE | 2019-11-30 03:36 | REPVR ---
PROCEDURE INFORMATION: Exam: CT Abdomen And Pelvis With Contrast Exam date and time: 11/30/2019 2:25 AM Age: 29 years old Clinical indication: Abdominal pain; Localized; Right; Additional info: Rlq/llq abd pain, n/v, febile TECHNIQUE: Imaging protocol: Computed tomography of the abdomen and pelvis with intravenous contrast. Radiation optimization: All CT scans at this facility use at least one of these dose optimization techniques: automated exposure control; mA and/or kV adjustment per patient size (includes targeted exams where dose is matched to clinical indication); or iterative reconstruction. Contrast material: ISO; Contrast volume: 100 ml; Contrast route: INTRAVENOUS (IV); COMPARISON: CT ABD/PEL W/IV CONTRAST ONLY 06/03/2018 1:04 AM FINDINGS: Liver: Normal. No mass. Gallbladder and bile ducts: Normal. No calcified stones. No ductal dilation. Pancreas: Normal. No ductal dilation. Spleen: Normal. No splenomegaly. Adrenals: Normal. No mass. Kidneys and ureters: Normal. No hydronephrosis. Stomach and bowel: Moderate amount of fecal material throughout the colon. No colonic obstruction or inflammatory changes. The small bowel is unremarkable. Appendix: No evidence of appendicitis. Intraperitoneal space: Unremarkable. No free air. No significant fluid collection. Vasculature: Unremarkable. No abdominal aortic aneurysm. Lymph nodes: Unremarkable. No enlarged lymph nodes. Bladder: Unremarkable as visualized. Reproductive: Unremarkable as visualized. Bones/joints: Unremarkable. No acute fracture. Soft tissues: Unremarkable. IMPRESSION: 1. Constipation. 2. No acute findings. Electronically signed by: Meng Caputo On 11/30/2019 03:36:23 AM
[2019-11-30] MEDS ORDERED: CIPR-249 PO (04:25)
[2019-11-30] MEDS ORDERED: MAGNESIUM CITRATE 300 ML BTL PO ONE (04:30)
[2019-11-30] MEDS ORDERED: CIPROFLOXACIN 500MG TABLET PO ONE (04:30)
== END 2019-11-30 05:18 | disposition home or self-care (01) ==
LOC: M ED 00:58
DX: N39.0 Urinary tract infection, site not specified (principal); K59.00 Constipation, unspecified; R50.9 Fever, unspecified; F11.10 Opioid abuse, uncomplicated; F15.10 Other stimulant abuse, uncomplicated; K75.9 Inflammatory liver disease, unspecified; F17.210 Nicotine dependence, cigarettes, uncomplicated; Z87.42 Personal history of other diseases of the female genital tract; Z88.0 Allergy status to penicillin; Z88.1 Allergy status to other antibiotic agents
CPT/HCPCS: 74177; 80047; 80076; 81001; 83605; 83690; 84702; 85025; 87086; 93041; 96374; 99285; J1885; Q9967

== ENCOUNTER → 2019-12-06 | Outpatient (REF) | payer OTHER, SELFPAY ==
[~2019-12-06] MED LIST changes: +CIPR-249 PO
[2019-12-06 15:52] LABS: BASO # 0.1 10^3/uL (0.0-0.2); EOS # 0.2 10^3/uL (0.0-0.5); EOS % 2.7 % (0.0-3.0); HEMATOCRIT 41.7 % (36.0-47.0); HEMOGLOBIN 13.6 g/dl (12.0-15.5); LYMPH % 38.1 % (24.0-44.0); MEAN CORPUSCULAR HEMOGLOBIN 27.9 pg (27.0-33.0); MEAN CORPUSCULAR HGB CONC 32.6 g/dl (32.0-36.5); MEAN CORPUSCULAR VOLUME 85.5 fl (80.0-96.0); MONO # 0.5 10^3/uL (0.0-0.8); MONO % 5.9 % (0.0-5.0); NEUTROPHILS % 51.4 % (36.0-66.0); PLATELET COUNT, AUTOMATED 402 10^3/uL (150-450); RED BLOOD COUNT 4.88 10^6/uL (4.00-5.40); WHITE BLOOD COUNT 7.9 10^3/uL (4.0-10.0)
[2019-12-06 17:20] LABS: HIV 1&2 SCREEN CENTAUR NEGATIVE (NEGATIVE)
[2019-12-08 10:47] LABS: HEPATITIS C VIRUS ABY INDEX > 11.0 INDEX (<0.8)
[2020-01-03 08:06] LABS: HEPATITIS C QUANTITATION 1730 IU/mL (.); HEPATITIS C VIRUS GENOTYPE 3 (.)
== END ==
LOC: M SFHCPLAZ 14:20
PROVIDERS: ATTEND Internal Medicine Infectious Disease
DX: B17.10 Acute hepatitis C without hepatic coma (principal)

== ENCOUNTER 2020-10-12 21:17 | Emergency (ER) | payer OTHER ==
[~2020-10-12] VITALS: Ht 165.1 cm; Wt 60.2 kg
[2020-10-12 21:18] VITALS: BP 112/64
[2020-10-13] MEDS ORDERED: CIPROFLOXACIN 500MG TABLET PO ONE (00:25)
[2020-10-13] MEDS ORDERED: CLINDAMYCIN 150MG CAPSULE PO ONE (00:25)
[2020-10-13] MEDS ORDERED: KETOROLAC 60MG 2ML VIAL IM ONE (00:25)
--- NOTE | 2020-10-13 02:05 | REPVR ---
PROCEDURE INFORMATION: Exam: XR Left Hand Exam date and time: 10/13/2020 12:50 AM Age: 30 years old Clinical indication: Other: Trauma dog bite TECHNIQUE: Imaging protocol: XR Left hand. Views: 3 or more views. COMPARISON: No relevant prior studies available. FINDINGS: Limitations: Evaluation of the fingers are limited by partial flexion. Limited by bracelet. Bones/joints: No acute fracture otherwise. No dislocation. Soft tissues: Soft tissue swelling of the 2nd digit. Small calcific calcification at the ulnar aspect of the 2nd PIP joint. IMPRESSION: 1. Small calcific calcification at the ulnar aspect of the 2nd PIP joint. Possible small foreign body versus fracture fragment. 2. Soft tissue swelling of the 2nd digit. 3. Consider dedicated views of the 2nd digit if clinically warranted. Electronically signed by: Anca Cotton On 10/13/2020 02:04:47 AM
[2020-10-13] MEDS ORDERED: CLEO150C PO (02:56)
[2020-10-13] MEDS ORDERED: CIPR-249 PO (02:57)
== END 2020-10-13 03:10 | disposition home or self-care (01) ==
LOC: M ED 21:17
DX: S61.250A Open bite of right index finger without damage to nail, initial encounter (principal); W54.0XXA Bitten by dog, initial encounter; Y92.009 Unspecified place in unspecified non-institutional (private) residence as the place of occurrence of the external cause; Y93.9 Activity, unspecified; Y99.9 Unspecified external cause status; K21.9 Gastro-esophageal reflux disease without esophagitis; F17.200 Nicotine dependence, unspecified, uncomplicated; Z88.0 Allergy status to penicillin; Z88.8 Allergy status to other drugs, medicaments and biological substances
CPT/HCPCS: 73130; 96372; 99283; J1885

== ENCOUNTER 2022-08-01 14:57 | Inpatient (IN) | payer OTHER ==
[~2022-08-01] VITALS: Ht 165.1 cm; Wt 71.6 kg
[2022-08-01] VITALS (17 sets, daily range): BP systolic 121–208; BP diastolic 63–105
[~2022-08-01 14:57] MED LIST changes: +CLEO150C PO
[2022-08-01] MEDS ORDERED: PRENTAB9 PO (15:07)
[2022-08-01] MEDS ORDERED: LACTATED RINGER'S 1000 ML IV STA (15:53)
[2022-08-01] MEDS ORDERED: LIDOCAINE 1% MDV 20ML VIAL INFIL PRN (15:55)
[2022-08-01] MEDS ORDERED: OXYTOCIN DRIP 30 UNITS in IV 1 EA IV PRN (15:55)
[2022-08-01] MEDS ORDERED: LR 1,000 ML IV SCH (15:55)
[2022-08-01] MEDS ORDERED: VANCOMYCIN HCL 1,000 MG, VIAL MATE ADAPTER 1 EACH in NS 250 ML IV SCH (16:00)
[2022-08-01] MEDS ORDERED: OXYTOCIN INJ 10UNITS/ML 1ML VIAL As Ordered ONE (19:07)
[2022-08-01] MEDS ORDERED: OXYTOCIN INJ 10UNITS/ML 1ML VIAL IM ONE (19:20)
[2022-08-01] MEDS ORDERED: LIDOCAINE 1% MDV 20ML VIAL SC ONE (19:20)
[2022-08-01] MEDS ORDERED: DOCUSATE SODIUM 100MG CAPSULE PO PRN (19:30)
[2022-08-01] MEDS ORDERED: DIBUCAINE 1% OINTMENT 30GM TOP PRN (19:30)
[2022-08-01] MEDS ORDERED: LIDOCAINE 1% MDV 20ML VIAL INFIL ONE (19:30)
[2022-08-01] MEDS ORDERED: IBUPROFEN 600MG TAB PO PRN (19:30)
[2022-08-01] MEDS ORDERED: METHYLERGONOVINE MALEATE 0.2 MG TAB PO PRN (19:30)
[2022-08-01] MEDS ORDERED: RHOGAM 300MCG (1500IU) INJ IM SCH (19:30)
[2022-08-01] MEDS ORDERED: ACETAMINOPHEN TAB 650MG DOSE (2X325MG) PO PRN (19:30)
[2022-08-01] MEDS ORDERED: ACETAMINOPHEN 500 MG TAB PO PRN (19:30)
[2022-08-01] MEDS: IBUPROFEN 800 MG TAB PO PRN (19:43)
[2022-08-01] MEDS ORDERED: NIFEdipine 10 MG CAP PO ONE (21:00)
[2022-08-02 00:01] LABS: TOTAL PROTEIN,RANDOM URINE 74.3 MG/DL (0.0-14.0)
[2022-08-02 00:06] LABS: CREATININE,RANDOM URINE 82.6 MG/DL
[2022-08-02 00:11] LABS: AMPHETAMINES URINE REFLEX NEGATIVE (NEGATIVE); BARBITURATES URINE REFLEX NEGATIVE (NEGATIVE); BENZODIAZEPINES URINE REFLEX NEGATIVE (NEGATIVE); CANNABINOIDS URINE REFLEX NEGATIVE (NEGATIVE); COCAINE METABOLITE URINE REFLE NEGATIVE (NEGATIVE); METHADONE URINE REFLEX NEGATIVE (NEGATIVE); PHENCYCLIDINE URINE REFLEX NEGATIVE (NEGATIVE)
[2022-08-02 00:26] LABS: OPIATES URINE REFLEX PENDING CONFIRMATION (NEGATIVE)
[2022-08-02] MEDS: IBUPROFEN 800 MG TAB PO PRN ×2 (04:00→14:23)
[2022-08-02 06:00] VITALS: BP 125/80
[2022-08-02] MEDS: PRENATAL VITAMINS CHEWABLE TABLET PO SCH (08:53)
[2022-08-02 18:00] VITALS: BP 140/80
[2022-08-03 06:00] VITALS: BP 119/72
[2022-08-03] MEDS: PRENATAL VITAMINS CHEWABLE TABLET PO SCH (07:36)
[2022-08-03] MEDS: IBUPROFEN 800 MG TAB PO PRN (07:45)
[2022-08-03] MEDS ORDERED: BOOSTRIX/ADACEL VACCINE (DIPHTH/PERTUSS/ACELL/TETANUS) 0.5ML SYR IM.IMMUN ONE (09:00)
[2022-08-03] MEDS ORDERED: MEASLES,MUMPS,RUBELLA VACCINE INJ (MMR-II) SC.IMMUN ONE (09:00)
[2022-08-03] MEDS ORDERED: IBUP-1022 PO (10:06)
[2022-08-03] MEDS ORDERED: ACET-683 PO (10:06)
[2022-08-03] MEDS ORDERED: COLA100C5 PO (10:06)
[2022-08-03] MEDS ORDERED: medroxyPROGESTERone ACET IM SUSP 150 MG/ML VIAL IM ONE (10:30)
[2022-08-06 12:08] LABS: Codeine Negative (Cutoff=200); GC Morphine 3677 ng/mL (Cutoff=200); Morphine Positive (.); Opiates Positive (.)
== END 2022-08-03 10:50 | disposition home or self-care (01) | DRG 560 ==
LOC: M LDO 14:57 → M LDI 15:28 → M OBS 22:00
PROVIDERS: ADMIT Specialist; ATTEND Specialist
PROC: 10E0XZZ Delivery of Products of Conception, External Approach (ICD-10-PCS; principal; 2022-08-01)
PROC: 0KQM0ZZ Repair Perineum Muscle, Open Approach (ICD-10-PCS; 2022-08-01)
PROC: 10907ZC Drainage of Amniotic Fluid, Therapeutic from Products of Conception, Via Natural or Artificial Opening (ICD-10-PCS; 2022-08-01)
PROC: 0W8NXZZ Division of Female Perineum, External Approach (ICD-10-PCS; 2022-08-01)
DX: O60.14X0 Preterm labor third trimester with preterm delivery third trimester, not applicable or unspecified (principal); O70.1 Second degree perineal laceration during delivery; Z3A.36 36 weeks gestation of pregnancy; Z37.0 Single live birth

== ENCOUNTER → 2023-03-10 | Outpatient (CLI) | payer OTHER ==
[~2023-03-10] MED LIST changes: +ACET-683 PO; +COLA100C5 PO; +IBUP-1022 PO; +PRENTAB9 PO
[2023-03-10 14:47] LABS: BASO % 0.4 % (0.0-1.0); EOS # 0.2 10^3/uL (0.0-0.5); EOS % 3.8 % (0.0-3.0); HEMATOCRIT 33.4 % (36.0-47.0); HEMOGLOBIN 11.4 g/dl (12.0-15.5); LYMPH # 2.4 10^3/uL (1.5-5.0); LYMPH % 47.9 % (24.0-44.0); MEAN CORPUSCULAR HEMOGLOBIN 26.7 pg (27.0-33.0); MEAN CORPUSCULAR HGB CONC 34.1 g/dl (32.0-36.5); MEAN CORPUSCULAR VOLUME 78.2 fl (80.0-96.0); MONO # 0.3 10^3/uL (0.0-0.8); MONO % 6.1 % (2.0-8.0); NEUTROPHILS # 2.1 10^3/uL (1.5-8.5); NEUTROPHILS % 41.6 % (36.0-66.0); PLATELET COUNT, AUTOMATED 228 10^3/uL (150-450); RED BLOOD COUNT 4.27 10^6/uL (4.00-5.40)
[2023-03-10 14:59] LABS: INR 1.07; PROTHROMBIN TIME 13.6 SECONDS (12.5-14.5)
[2023-03-10 23:55] LABS: ALBUMIN 3.9 G/DL (3.2-5.2); ALKALINE PHOSPHATASE 97 U/L (46-116); ALT/SGPT 56 U/L (7.0-40); AST/SGOT 37 U/L (<34); BILIRUBIN,TOTAL 0.4 MG/DL (0.3-1.2); BLOOD UREA NITROGEN 14 MG/DL (9-23); CALCIUM LEVEL 8.9 MG/DL (8.5-10.1); CARBON DIOXIDE LEVEL 24 MMOL/L (20-31); CHLORIDE LEVEL 106 MMOL/L (98-107); CREATININE FOR GFR 0.72 MG/DL (0.55-1.30); GLOMERULAR FILTRATION RATE > 60.0 (>60); GLUCOSE, FASTING 89 MG/DL (60-100); POTASSIUM SERUM 3.7 MMOL/L (3.5-5.1); SODIUM LEVEL 138 MMOL/L (136-145); TOTAL PROTEIN 7.5 G/DL (5.7-8.2)
[2023-03-11 00:01] LABS: THYROID STIMULATING HORMONE 4.249 uIU/ML (0.55-4.78)
[2023-03-11 00:02] LABS: FREE T4 0.69 NG/DL (0.89-1.76)
[2023-03-11 00:33] LABS: HIV 1&2 SCREEN NEGATIVE (NEGATIVE)
== END ==
LOC: M LAB 13:29
PROVIDERS: ATTEND Family Medicine Addiction Medicine
DX: Z68.27 Body mass index [BMI] 27.0-27.9, adult (principal)

== ENCOUNTER → 2023-10-02 | Outpatient (CLI) | payer OTHER ==
[2023-10-02 11:04] LABS: HEMATOCRIT 36.8 % (36.0-47.0); HEMOGLOBIN 12.5 g/dl (12.0-15.5); MEAN CORPUSCULAR HEMOGLOBIN 27.8 pg (27.0-33.0); MEAN CORPUSCULAR VOLUME 81.8 fl (80.0-96.0); PLATELET COUNT, AUTOMATED 263 10^3/uL (150-450); WHITE BLOOD COUNT 5.3 10^3/uL (4.0-10.0)
[2023-10-02 11:39] LABS: ALBUMIN 3.9 G/DL (3.2-5.2); ALKALINE PHOSPHATASE 74 U/L (46-116); ALT/SGPT 87 U/L (7.0-40); AST/SGOT 60 U/L (<34); BILIRUBIN,TOTAL 0.4 MG/DL (0.3-1.2); BLOOD UREA NITROGEN 19 MG/DL (9-23); CALCIUM LEVEL 8.9 MG/DL (8.5-10.1); CARBON DIOXIDE LEVEL 28 MMOL/L (20-31); CHLORIDE LEVEL 105 MMOL/L (98-107); CREATININE FOR GFR 0.69 MG/DL (0.55-1.30); GLOMERULAR FILTRATION RATE > 60.0 (>60); GLUCOSE, FASTING 85 MG/DL (60-100); POTASSIUM SERUM 4.8 MMOL/L (3.5-5.1); SODIUM LEVEL 138 MMOL/L (136-145); TOTAL PROTEIN 7.7 G/DL (5.7-8.2)
[2023-10-02 12:36] LABS: GC DNA AMPLIFICATION NEGATIVE (NEGATIVE)
[2023-10-02 13:05] LABS: HCG, SERUM QUALITATIVE NEGATIVE (NEGATIVE)
[2023-10-02 13:10] LABS: HEPATITIS B SURFACE ANTIGEN NEGATIVE (NEGATIVE)
[2023-10-02 13:23] LABS: HIV 1&2 SCREEN NEGATIVE (NEGATIVE)
[2023-10-02 13:45] LABS: HEPATITIS C VIRUS ABY INDEX > 11.00 INDEX (<0.8)
== END ==
LOC: M LAB 09:43
PROVIDERS: ATTEND Family Medicine
DX: F11.20 Opioid dependence, uncomplicated (principal)

== ENCOUNTER → 2023-10-22 | Outpatient (CLI) | payer OTHER ==
[2023-10-22 11:28] LABS: INR 1.06; PROTHROMBIN TIME 13.5 SECONDS (12.5-14.5)
[2023-10-22 12:01] LABS: HEPATITIS B SURFACE ANTIBODY POSITIVE (POSITIVE)
== END ==
LOC: M LAB 10:15
PROVIDERS: ATTEND Emergency Medicine
DX: B18.2 Chronic viral hepatitis C (principal)

== ENCOUNTER → 2023-10-26 | Outpatient (REF) | payer OTHER | LOC: M LAB REF 17:35 | PROVIDERS: ATTEND Physician Assistant Medical | DX: J02.9 Acute pharyngitis, unspecified (principal) ==

== ENCOUNTER 2024-03-10 10:01 | Day surgery (SDC) | payer OTHER ==
[~2024-03-10] VITALS: Ht 165.1 cm; Wt 76.7 kg
[~2024-03-10 10:01] MED LIST changes: +ACETAMINOPHEN *IV* 1,000 MG in IV 0 EA IV ONE; +MEDR150I13 IM; +METH-1177 PO
[2024-03-10] MEDS ORDERED: LR 1,000 ML IV SCH ×3 (10:05→13:25)
[2024-03-10] MEDS ORDERED: NS 1,000 ML IV SCH (10:05)
[2024-03-10] MEDS ORDERED: fentaNYL 100 MCG/2 ML INJECTION As Ordered ONE (10:21)
[2024-03-10] MEDS ORDERED: LIDOCAINE 2% 100MG/5ML SDV (FOR ANES.) As Ordered ONE (10:22)
[2024-03-10] MEDS ORDERED: MIDAZOLAM INJ 2MG/2ML VIAL As Ordered ONE (10:22)
[2024-03-10] MEDS ORDERED: KETOROLAC 60MG 2ML VIAL As Ordered ONE (10:22)
[2024-03-10] MEDS ORDERED: SUGAMMADEX SODIUM 500 MG/5 ML VIAL (BRIDION) As Ordered ONE (10:22)
[2024-03-10] MEDS ORDERED: propofoL 200 MG/20 ML VIAL As Ordered ONE (10:22)
[2024-03-10] MEDS ORDERED: ROCURONIUM BROMIDE 50MG/5ML VIAL As Ordered ONE (10:22)
[2024-03-10] MEDS ORDERED: ONDANSETRON 4MG 2ML VIAL As Ordered ONE (10:22)
[2024-03-10 10:36] LABS: HEMATOCRIT 36.4 % (36.0-47.0); HEMOGLOBIN 12.6 g/dl (12.0-15.5); MEAN CORPUSCULAR HEMOGLOBIN 28.3 pg (27.0-33.0); MEAN CORPUSCULAR HGB CONC 34.6 g/dl (32.0-36.5); MEAN CORPUSCULAR VOLUME 81.8 fl (80.0-96.0); PLATELET COUNT, AUTOMATED 234 10^3/uL (150-450); RED BLOOD COUNT 4.45 10^6/uL (4.00-5.40); WHITE BLOOD COUNT 6.6 10^3/uL (4.0-10.0)
[2024-03-10] MEDS: METHYLENE BLUE 0.5% (5MG/ML) 10 ML AMP (PROVAYBLUE) As Ordered ONE (11:38)
[2024-03-10] MEDS ORDERED: HYDROmorphone HCL 2MG/ML 1ML VIAL As Ordered ONE (12:54)
[2024-03-10] MEDS ORDERED: ONDANSETRON 4MG 2ML VIAL IV PRN (13:05)
[2024-03-10] MEDS ORDERED: METOCLOPRAMIDE INJ 10MG/2ML VIAL IV PRN (13:05)
[2024-03-10] MEDS ORDERED: MEPERIDINE 25 MG/ML 1ML VIAL IV PRN (13:05)
[2024-03-10] MEDS ORDERED: diphenhydrAMINE 50MG/ML VIAL IV PRN (13:05)
[2024-03-10] MEDS: fentaNYL 100 MCG/2 ML INJECTION IV PRN (13:17)
[2024-03-10] MEDS ORDERED: PERCOCET 5MG/325MG TAB PO PRN (13:25)
[2024-03-10] MEDS: HYDROMORPHONE HCL 0.5 MG/ 0.5 ML SYRINGE IV PRN (13:41)
[2024-03-10] MEDS: oxyCODONE 5MG TAB PO PRN (13:41)
[2024-03-10 14:20] VITALS: BP 114/59; TEMP 98.9; O2SAT 100
[2024-03-10] MEDS ORDERED: IBUPROFEN 800 MG TAB PO SCH (18:00)
== END 2024-03-10 14:45 | disposition home or self-care (01) ==
LOC: M SDC 10:01
PROVIDERS: ATTEND Obstetrics & Gynecology
DX: Z30.2 Encounter for sterilization (principal); Z88.1 Allergy status to other antibiotic agents; Z79.899 Other long term (current) drug therapy; F17.290 Nicotine dependence, other tobacco product, uncomplicated; F19.11 Other psychoactive substance abuse, in remission
CPT/HCPCS: 36415; 58661; 81025; 85027; 86850; 86900; 86901; 88302; J0665; J1100; J1171; J1885; J2250; J2405; J3010

== ENCOUNTER → 2024-05-27 | Outpatient (CLI) | payer OTHER ==
[~2024-05-27] MED LIST changes: -ACETAMINOPHEN *IV* 1,000 MG in IV 0 EA IV ONE
== END ==
LOC: M LAB 12:05
PROVIDERS: ATTEND Emergency Medicine
DX: B18.2 Chronic viral hepatitis C (principal)